=== PATIENT | female | born 1970 | race African-American/Black ===

== ENCOUNTER 2019-04-06 00:39 | Emergency (ER) | payer SELFPAY ==
[~2019-04-06] VITALS: Ht 175.3 cm; Wt 81.6 kg
[2019-04-06 02:02] LABS: BASO % 1 % (0-3); EOS # 0.4 x10^3/uL (0.0-0.7); EOS % 6 % (0-3); HEMATOCRIT 35.5 % (36.0-47.0); LYMPH # 2.2 x10^3/uL (1.0-4.8); LYMPH % 35 % (24-48); MEAN CORPUSCULAR HEMOGLOBIN 31 pg (25-35); MEAN CORPUSCULAR HGB CONC 34 g/dL (31-37); MEAN CORPUSCULAR VOLUME 91 fL (79-100); MONO # 0.4 x10^3/uL (0.0-1.1); MONO % 7 % (0-9); NEUT # 3.3 x10^3/uL (1.8-7.7); NEUT % 52 % (31-73); PLATELET COUNT 327 x10^3/uL (140-400); RED BLOOD COUNT 3.92 x10^6/uL (3.50-5.40); RED CELL DISTRIBUTION WIDTH 14.6 % (11.5-14.5); WHITE BLOOD COUNT 6.2 x10^3/uL (4.0-11.0)
[2019-04-06 02:07] LABS: BILIRUBIN,URINE NEGATIVE (NEG); CLARITY,URINE CLEAR; COLOR,URINE YELLOW; NITRITE,URINE NEGATIVE (NEG); PROTEIN,URINE NEGATIVE (NEG-TRACE); UROBILINOGEN,URINE 0.2 mg/dL (0.2 mg/dL)
[2019-04-06 02:17] LABS: CALCIUM 9.4 mg/dL (8.5-10.1); GFR 71.9; POTASSIUM 3.9 mmol/L (3.5-5.1)
[2019-04-06 02:28] LABS: SQUAMOUS EPITHELIAL CELL,UR MOD /LPF
[2019-04-06 02:29] LABS: BACTERIA,URINE 0 /HPF (0-FEW); RBC,URINE 0 /HPF (0-2); WBC,URINE OCC /HPF (0-4)
[2019-04-06] MEDS ORDERED: ONDANSETRON PF 4 MG/2 ML VIAL. IV ONE (02:30)
[2019-04-06] MEDS ORDERED: FAMOTIDINE 20 MG/2 ML VIAL IVP ONE (02:30)
[2019-04-06] MEDS ORDERED: IV NORMAL SALINE 1000ML BAG 1,000 ML IV ONE (02:30)
[2019-04-06] MEDS ORDERED: KETOROLAC 15 MG/ML VIAL. IV ONE (02:30)
[2019-04-06 02:36] LABS: ALBUMIN 3.5 g/dL (3.4-5.0); ALBUMIN/GLOBULIN RATIO 0.8 (1.0-1.7); TOTAL BILIRUBIN 0.1 mg/dL (0.2-1.0); TOTAL PROTEIN 8.1 g/dL (6.4-8.2)
[2019-04-06] MEDS ORDERED: CONTRAST GIVEN. MC PRN (03:30)
--- NOTE | 2019-04-06 03:42 | PHYS DOC ---
Past Medical History Past Medical History: No Pertinent History Past Surgical History: No Surgical History Alcohol Use: Occasionally Drug Use: Marijuana (occassional) Adult General Chief Complaint Chief Complaint: ABDOMINAL PAIN HPI HPI Ms. Davies is a 49yo AAF w/ no significant PMH and presents with 3 days of intermittent sharp and crampy abdominal pain. Pain is 8/10, is located in either the RUQ or LUQ, lasts for 3-5 minutes and occurs 3-4 times per day. The first episode started suddenly 3 days ago. She has also experienced 2 days of migraines relieved with BC powder. Reports chronic low back pain. Denies n/v, f/ c, CP, SOA, diarrhea or constipation. Review of Systems Review of Systems Constitutional: Denies fever or chills Eyes: Denies redness or eye pain HENT: Denies nasal congestion or sore throat Respiratory: Denies cough or shortness of breath Cardiovascular: Denies chest pain or palpitations GI: Reports LUQ and RUQ abdominal pain. Denies nausea, vomiting, diarrhea, constipation, or hematochezia. : Denies dysuria or hematuria. Musculoskeletal: Reports low back pain. Denies joint pain. Integument: Denies rash or skin lesions. Neurologic: Reports migraine. Denies focal weakness or sensory changes Complete systems were reviewed and found to be within normal limits, except as documented in this note. Current Medications Current Medications Current Medications Medications (Trade) Dose Ordered Sig/Aura Start Time Stop Time Status Last Admin Dose Admin Famotidine (Pepcid Vial) 20 mg 1X ONCE 04/06/19 02:30 04/06/19 02:31 DC 04/06/19 02:12 20 MG Info (CONTRAST GIVEN -- Rx MONITORING) 1 each PRN DAILY PRN 04/06/19 03:30 04/08/19 03:29 Iohexol (Omnipaque 300 Mg/ml) 75 ml 1X ONCE 04/06/19 04:00 04/06/19 04:01 DC 04/06/19 03:45 75 ML Ketorolac Tromethamine (Toradol 15mg Vial) 15 mg 1X ONCE 04/06/19 02:30 04/06/19 02:31 DC 04/06/19 02:12 15 MG Ondansetron HCl (Zofran) 4 mg 1X ONCE 04/06/19 02:30 04/06/19 02:31 DC 04/06/19 02:12 4 MG Sodium Chloride 1,000 ml @ 1,000 mls/hr 1X ONCE 04/06/19 02:30 04/06/19 03:29 DC 04/06/19 02:12 1,000 MLS/HR Allergies Allergies Allergies Coded Allergies Type Severity Reaction Last Updated Verified No Known Drug Allergies 04/06/19 No Physical Exam Physical Exam Constitutional: conversation, obese, well developed, well nourished, no acute distress, non-toxic appearance HENT: Normocephalic, atraumatic, oropharynx moist Eyes: PERRL, EOMI, conjunctiva normal, no discharge Neck: Normal range of motion, no tenderness, supple, no cervical or supraclavicular LAD Cardiovascular: Heart rate normal, regular rhythm w/o gallops, rubs, or murmurs. Lungs & Thorax: Bilateral breath sounds clear to auscultation, no wheezing Abdomen: Soft, no tenderness, non-distended. Skin: Warm, dry, no erythema, no rash Back: Lumbar tenderness, no CVA tenderness Extremities: No tenderness, ROM intact, no edema Neurologic: Alert and oriented X 3, normal motor function, normal sensory f unction, no focal deficits noted Psychologic: Affect normal, judgement normal, mood normal Current Patient Data Vital Signs Vital Signs Date Time Temp Pulse Resp B/P (MAP) Pulse Ox O2 Delivery O2 Flow Rate FiO2 04/06/19 01:10 98.2 75 16 150/67 (94) 98 Room Air 98.2 Lab Values Laboratory Tests Test 04/06/19 01:20 04/06/19 01:25 04/06/19 01:35 Urine Collection Type Unknown Urine Color Yellow Urine Clarity Clear Urine pH 5.0 Urine Specific [place] 1.020 Urine Protein Negative mg/dL (NEG-TRACE) Urine Glucose (UA) Negative mg/dL (NEG) Urine Ketones (Stick) Negative mg/dL (NEG) Urine Blood Negative (NEG) Urine Nitrite Negative (NEG) Urine Bilirubin Negative (NEG) Urine Urobilinogen Dipstick 0.2 mg/dL (0.2 mg/dL) Urine Leukocyte Esterase Negative (NEG) Urine RBC 0 /HPF (0-2) Urine WBC Occ /HPF (0-4) Urine Squamous Epithelial Cells Mod /LPF Urine Bacteria 0 /HPF (0-FEW) Urine Mucus Slight /LPF White Blood Count 6.2 x10^3/uL (4.0-11.0) Red Blood Count 3.92 x10^6/uL (3.50-5.40) Hemoglobin 12.0 g/dL (12.0-15.5) Hematocrit 35.5 % (36.0-47.0) L Mean Corpuscular Volume 91 fL (79-100) Mean Corpuscular Hemoglobin 31 pg (25-35) Mean Corpuscular Hemoglobin Concent 34 g/dL (31-37) Red Cell Distribution Width 14.6 % (11.5-14.5) H Platelet Count 327 x10^3/uL (140-400) Neutrophils (%) (Auto) 52 % (31-73) Lymphocytes (%) (Auto) 35 % (24-48) Monocytes (%) (Auto) 7 % (0-9) Eosinophils (%) (Auto) 6 % (0-3) H Basophils (%) (Auto) 1 % (0-3) Neutrophils # (Auto) 3.3 x10^3/uL (1.8-7.7) Lymphocytes # (Auto) 2.2 x10^3/uL (1.0-4.8) Monocytes # (Auto) 0.4 x10^3/uL (0.0-1.1) Eosinophils # (Auto) 0.4 x10^3/uL (0.0-0.7) Basophils # (Auto) 0.0 x10^3/uL (0.0-0.2) Sodium Level 140 mmol/L (136-145) Potassium Level 3.9 mmol/L (3.5-5.1) Chloride Level 103 mmol/L (98-107) Carbon Dioxide Level 27 mmol/L (21-32) Anion Gap 10 (6-14) Blood Urea Nitrogen 16 mg/dL (7-20) Creatinine 1.0 mg/dL (0.6-1.0) Estimated GFR (Cockcroft-Gault) 71.9 BUN/Creatinine Ratio 16 (6-20) Glucose Level 164 mg/dL (70-99) H Lactic Acid Level 1.8 mmol/L (0.4-2.0) Calcium Level 9.4 mg/dL (8.5-10.1) Total Bilirubin 0.1 mg/dL (0.2-1.0) L Aspartate Amino Transferase (AST) 11 U/L (15-37) L Alanine Aminotransferase (ALT) 21 U/L (14-59) Alkaline Phosphatase 107 U/L (46-116) Total Protein 8.1 g/dL (6.4-8.2) Albumin 3.5 g/dL (3.4-5.0) Albumin/Globulin Ratio 0.8 (1.0-1.7) L Lipase 144 U/L (73-393) POC Urine HCG, Qualitative Hcg negative (Negative) Laboratory Tests 04/06/19 01:25 Laboratory Tests 04/06/19 01:25 EKG EKG [] Radiology/Procedures Radiology/Procedures PROCEDURE: CT ABD PELV W/ IV CONTRST ONLY INDICATION: Abdomen pain COMPARISON: None. TECHNIQUE: Axial CT images obtained through the abdomen and pelvis with contrast. One or more of the following individualized dose reduction techniques were utilized for this examination: 1. Automated exposure control; 2. Adjustment of the mA and/or kV according to patient size; 3. Use of iterative reconstruction technique. FINDINGS: Small hiatal hernia. Abdominal aorta not aneurysmal. Liver is mildly prominent in size. Gallbladder appears contracted. No peripancreatic fluid collection. Spleen unremarkable. No left-sided hydronephrosis. Urinary bladder is partially distended. No right-sided hydronephrosis. No periappendiceal inflammatory changes. No dilated loops of bowel to suggest obstruction. Degenerative changes throughout spine. Postoperative changes left proximal femur with intramedullary win and calcifications in the adjacent soft tissues. 7 mm lucent lesion at L1 vertebral body. Facet hypertrophy most prominent at L4-5 on the right with some erosions at the facet joint. IMPRESSION: 1. No evidence of bowel obstruction or appendicitis. 2. No hydronephrosis. Electronically signed by: Darren Zuleta MD (04/06/2019 4:02 AM) [facility] Course & Med Decision Making Course & Med Decision Making Pertinent Labs and Imaging studies reviewed. (See chart for details) [] Dragon Disclaimer Dragon Disclaimer This electronic medical record was generated, in whole or in part, using a voice recognition dictation system. Departure Departure Impression: Primary Impression: Abdominal pain Disposition: 01 HOME, SELF-CARE Condition: STABLE Referrals: NO PCP (PCP) ULISES FENG MD Patient Instructions: Abdominal Pain, [id number] Famotidine (PEPCID) 20 Mg Tablet 20 MG PO BID, #20 TAB Prov: SHANAE FOSTER DO 04/06/19 Ondansetron (ONDANSETRON ODT) 4 Mg Tab.rapdis 1 TAB PO PRN Q6-8HRS PRN for NAUSEA, #16 TAB Prov: SHANAE FOSTER DO 04/06/19 Hyoscyamine Sulfate (LEVSIN-SL) 0.125 Mg Tab.subl 1-2 TAB SL PRN Q4HRS, #20 TAB Prov: SHANAE FOSTER DO 04/06/19 Problem Qualifiers Primary Impression: Abdominal pain Abdominal location: unspecified location Qualified Codes: R10.9 - Unspecified abdominal pain SHANAE FOSTER DO Apr 06, 2019 03:42
[2019-04-06] MEDS ORDERED: IOHEXOL 300 MG/ML 100ML VIAL. IV ONE (04:00)
--- NOTE | 2019-04-06 04:05 | RAD ---
INDICATION: Abdomen pain COMPARISON: None. TECHNIQUE: Axial CT images obtained through the abdomen and pelvis with contrast. One or more of the following individualized dose reduction techniques were utilized for this examination: 1. Automated exposure control; 2. Adjustment of the mA and/or kV according to patient size; 3. Use of iterative reconstruction technique. FINDINGS: Small hiatal hernia. Abdominal aorta not aneurysmal. Liver is mildly prominent in size. Gallbladder appears contracted. No peripancreatic fluid collection. Spleen unremarkable. No left-sided hydronephrosis. Urinary bladder is partially distended. No right-sided hydronephrosis. No periappendiceal inflammatory changes. No dilated loops of bowel to suggest obstruction. Degenerative changes throughout spine. Postoperative changes left proximal femur with intramedullary win and calcifications in the adjacent soft tissues. 7 mm lucent lesion at L1 vertebral body. Facet hypertrophy most prominent at L4-5 on the right with some erosions at the facet joint. IMPRESSION: 1. No evidence of bowel obstruction or appendicitis. 2. No hydronephrosis. Electronically signed by: Darren Zuleta MD (04/06/2019 4:02 AM) [facility]
[2019-04-06] MEDS ORDERED: HYOS0.1265 SL (04:12)
[2019-04-06] MEDS ORDERED: ONDA4TAB12 PO (04:12)
[2019-04-06] MEDS ORDERED: FAMO-63 PO (04:12)
[2019-04-06 04:30] VITALS: BP 128/77
== END 2019-04-06 04:40 | disposition home or self-care (01) ==
LOC: ER 00:39
DX: R10.11 Right upper quadrant pain (principal); R10.12 Left upper quadrant pain; G89.29 Other chronic pain; M54.5 Low back pain; K44.9 Diaphragmatic hernia without obstruction or gangrene
CPT/HCPCS: 36415; 74177; 80053; 81001; 81025; 83605; 83690; 85025; 96374; 96375; 99285; J1885; J2405; J3490; J7030; Q9967